=== PATIENT | female | born 1925 | race Caucasian/White ===

== ENCOUNTER 2017-03-15 09:04 | Observation (INO) | payer MEDICARE, BC, MEDICAID ==
[2017-03-15 10:17] LABS: HEMATOCRIT 40.5 % (36.0-48.0); MEAN CELL VOLUME 88.2 fL (80.0-100.0); MEAN CORPUS. HGB CONCENTRATION 34.7 g/dL (32.0-36.0); MEAN CORPUSCULAR HEMOGLOBIN 30.6 pg (29.0-35.0); MEAN PLATELET VOLUME 10.1 fL (7.4-10.4); PLATELET COUNT 292 X 10^3uL (130-440); RED BLOOD COUNT 4.59 X 10^6uL (4.20-6.10); RED CELL DISTRIBUTION WIDTH 12.9 % (11.5-14.5); WHITE BLOOD COUNT 16.4 X 10^3uL (3.9-10.7)
[2017-03-15] MEDS ORDERED: HOME MEDICATION LIST NEEDED 1 EA EACH MC ONE (10:17)
[2017-03-15] MEDS ORDERED: ONDANSETRON HCL 4 MG/2 ML VIAL ONE (10:22)
[2017-03-15] MEDS ORDERED: ACETAMINOPHEN 325 MG TABLET PO ONE (10:23)
[2017-03-15 10:24] LABS: BLOOD UREA NITROGEN 23 mg/dL (7-17); CALCIUM 10.6 mg/dL (8.4-10.2); CHLORIDE 101 mmol/L (98-107); GLUCOSE 131 mg/dL (70-100); POTASSIUM 4.2 mmol/L (3.5-5.1); SODIUM 143 mmol/L (137-145)
[2017-03-15 10:32] LABS: BAND% (Manual) 2 % (0.0-1.0); BASOPHIL % (Manual) 0 % (0.0-2.0); EOSINOPHIL % (Manual) 1 % (0.0-6.0); LYMPHOCYTE % (Manual) 9 % (20.0-40.0); MONOCYTE % (Manual) 4 % (2.0-10.0); NEUTROPHIL % (Manual) 84 % (54.0-75.0); PLATELET ESTIMATE ADEQUATE
[2017-03-15] MEDS ORDERED: cefTRIAXone SODIUM 1,000 MG/10 ML VIAL ONE (10:47)
[2017-03-15] MEDS ORDERED: NORMAL SALINE MINI-BAG+ 100 ML IV ONE (10:48)
[2017-03-15] MEDS ORDERED: NORMAL SALINE 0 ML IV ONE (10:48)
--- NOTE | 2017-03-15 11:15 | ER NURSING DOCUMENTATION ---
Nurse's Notes [facility] Name:Rocio Monsivais Age:89 yrs Sex:Female :[id number] Arrival Date:03/15/2017 Time:09:04 Bed4 Private MD:Meryl Shields Diagnosis:Pneumonia Bacterial Presentation: 03/15 09:06 Acuity: ALMITA 2 tg 09:20 Notified ED Physician of patient's arrival and CC Dr. Rolon notified. lpr 09:49 Presenting complaint: [facility] staff reports patient with cough and fever. Transition of lp care: [facility]. 09:49 Method Of Arrival: Wheelchair lp Triage Assessment: 10:00 General: Appears in no apparent distress, Behavior is appropriate for age. Pain: Denies lp pain. EENT: No deficits noted. Neuro: Level of Consciousness is awake, alert, confused, Oriented to person, place, Export Specialist are equal bilaterally. Cardiovascular: Capillary refill < 3 seconds Heart tones S1 S2 Murmur present Pulses are all present. Rhythm is Respiratory: Airway is patent Trachea midline Respiratory effort is even, unlabored, Respiratory pattern is regular, Reports cough that is productive. GI: No deficits noted. : No deficits noted. Derm: Skin is intact, is healthy with good turgor, is fragile, Skin is dry, Skin is pink, warm & dry. Historical: - Allergies: Codeine; Contrast; Darvon; PENICILLINS; Morphine; - Home Meds: 1. acetaminophen 325 mg oral tab 2 tabs every 4 hours as needed for Pain 2. atorvastatin 10 mg oral tab 1 tab once daily 3. Dulcolax (bisacodyl) 10 mg rectal supp 1 suppository once daily as needed for constipation 4. calcium and vitamin D 5. Celebrex 200 mg oral cap 1 cap once daily 6. diltiazem HCl 120 mg oral cpER 1 cap once daily 7. famotidine 20 mg oral tab 1 tab every 12 hours 8. ferrous sulfate 325 mg (65 mg iron) oral TbEC 9. gabapentin 300 mg oral cap 1 cap daily 10. Avapro 300 mg oral tab 1 tab once daily 11. lactulose 10 gram/15 mL oral soln 30 mL once daily 12. salonpas 13. nitroglycerin 0.4 mg sublingual subl 1 tab at the first sign of an attack; no more than 3 tabs are recommended within a 15 minute period. 14. nystatin 100,000 unit/gram topical oint 2 times per day 15. Zoloft 50 mg oral tab 1 tab once daily 16. warfarin 5 mg oral tab 1 tab once daily 17. aspirin 81 mg oral chew 1 tab once daily 18. metoprolol tartrate 25 mg oral tab 1 tab 2 times per day 19. OxyContin 10 mg oral Tb12 1 tab every 12 hours 20. oxycodone 5 mg oral cap 1 cap every 6 hours as needed for pain - PMHx: OSTEOARTHRITIS; OSTEOPOROSIS; polymyalgia rheumatica; GERD; DEPRESSION; PACEMAKER; Sick sinus syndrome; ATRIAL FIB; Hypertension; CAD; - PSHx: HYSTERECTOMY; Right knee replacement; Cardiac Stent; left hip arthroplasty; - Tetanus: < 10 years. - Ebola Screening: : Patient negative for fever greater than or equal to 101.5 degrees Fahrenheit, and additional compatible Ebola Virus Disease symptoms. Patient denies exposure to infectious person. Patient denies travel to an Ebola-affected area in the 21 days before illness onset. . - Immunization history: Pneumococcal vaccine is up to date, Flu Vaccine < 1 year. - Social history: Smoking status: . Screenin:03 Infectious Disease Risk None. Abuse screen: Denies threats or abuse. Denies injuries lp from another. Nutritional screening: No deficits noted. Assessment: 10:02 See Triage Assessment done by same RN. Respiratory: Airway is patent. Derm: No deficits lp noted. Vital Signs: 09:12 BP 147 / 69; Pulse 96; Resp 18; Temp 100.2(O); Pulse Ox 87% on R/A; Weight 80.74 kg; lp Height 5 ft. 6 in. (167.64 cm); Pain 0/10; 09:15 BP 143 / 65; Pulse 90; Resp 18; Pulse Ox 93% on 2 lpm NC; lp 10:00 BP 139 / 48; Pulse 79; Resp 18; Pulse Ox 93% on 2 lpm NC; lp 09:12 Body Mass Index 28.73 (80.74 kg, 167.64 cm) lp ED Course: 09:05 Patient arrived in ED. ds 09:05 Meryl Shields MD is Private Physician. ds 09:06 Juan Preston, RN is Primary Nurse. tg 09:06 Triage completed. tg 09:30 Port Xray Completed. ms 09:37 Polo Rolon MD is Attending Physician. sc 09:41 Inserted peripheral IV: 20 gauge in right forearm and blood collected. lp 10:[address] Rolon notified. lp 10:03 Valuables Remains with patient Patient has correct armband on for positive lp identification. Placed in gown. Bed in low position. Call light in reach. Side rails up X 1. Cardiac Monitoring On for Nurse Monitoring only. Pulse Ox - RN Monitoring Only NIBP On - RN Monitoring Only. 10:16 Meryl Shields MD is Admitting Physician. sc Administered Medications: 10:20 Drug: Zofran 4 mg; Route: IVP; Infused Over: 2 mins; Site: right forearm; lp 11:12 Follow up: Response: No adverse reaction; No change in condition lp 10:20 Drug: Tylenol 650 mg; Route: PO; lp 11:12 Follow up: Response: No adverse reaction; No change in condition lp 10:30 Drug: NS 0.9% 1000 ml; Route: IV; Rate: 30 ml/hr; Site: right forearm; lp 11:14 Follow up: Response: No adverse reaction; No change in condition; IV Status: Infusion lp continued upon admission; IV Intake: 30ml 10:56 Drug: Rocephin 1 grams; Route: IVPB; Site: right forearm; lp 11:12 Follow up: IV Status: Infusion continued upon admission; IV Intake: 100ml lp 11:12 Drug: Clindamycin 300 mg; Route: IVPB; Site: right forearm; lp 11:13 Follow up: Response: No adverse reaction; No change in condition lp 11:14 Follow up: Response: No adverse reaction; No change in condition; IV Status: Infusion lp continued upon admission Point of Care Testing: Urine Dip: 11:10 pH: 6.5; ; Specific [place]: 1.015; Ketones: Trace; Glucose: Negative; Protein: lp Positive (+); Leukocytes: Negative; Nitrite: Negative ; Blood: Non Hemolyzed Trace; Bilirubin: Small (+) ; Urobilinogen: Normal Intake: 11:12 IV: 100ml; Total: 100ml. lp 11:14 IV: 30ml; Total: 130ml. lp Outcome: 10:17 Decision to Admit by Provider. sc 11:14 Admitted to Med/surg accompanied by nurse. lp 11:14 Condition: stable 11:14 Report given to Med-consulting utility forester 11:14 Instructed on need to admit 11:15 Patient left the ED. lp Signatures: Juan Preston RN RN Marilee Cruz RN RN lp Srot, Deidra, Wagner Reg Polo Barroso MD MD wi [facility] Sierra Ingram RN RN lpr
--- NOTE | 2017-03-15 11:15 | ER PHYSICIAN DOCUMENTATION ---
Physician Documentation [facility] Name:Rocio Monsivais Age:89 yrs Sex:Female :1925 Arrival Date:03/15/2017 Time:09:04 Bed4 Private MD:Meryl Shields ED Polo Bailey Disposition: 03/15/17 10:17 Admit ordered for Meryl Shields. Preliminary diagnosis is Pneumonia Bacterial. - Bed requested for Medical/Surgical. - Condition is Serious. - Problem is an ongoing problem. - Symptoms are unchanged. 23 HR OBS Yes HPI: 03/15 09:56 This 89 yrs old Female presents to ER via Wheelchair with complaints of Fever.sc 09:56 The patient reports fever, that was measured at 100.8 degrees Fahrenheit. Onset: The sc symptom(s)/episode began/occurred last night. Associated signs and symptoms: Pertinent positives: altered mental status,\\ chills, cough, with yellow sputum. Severity of symptoms: At their worst the symptoms were moderate. The patient has been recently seen by a physician: the patient's primary care provider, with similar presenting complaints, was given a prescription for antibiotics. Historical: - Allergies: Codeine; Contrast; Darvon; PENICILLINS; Morphine; - Home Meds: 1. acetaminophen 325 mg oral tab 2 tabs every 4 hours as needed for Pain 2. atorvastatin 10 mg oral tab 1 tab once daily 3. Dulcolax (bisacodyl) 10 mg rectal supp 1 suppository once daily as needed for constipation 4. calcium and vitamin D 5. Celebrex 200 mg oral cap 1 cap once daily 6. diltiazem HCl 120 mg oral cpER 1 cap once daily 7. famotidine 20 mg oral tab 1 tab every 12 hours 8. ferrous sulfate 325 mg (65 mg iron) oral TbEC 9. gabapentin 300 mg oral cap 1 cap daily 10. Avapro 300 mg oral tab 1 tab once daily 11. lactulose 10 gram/15 mL oral soln 30 mL once daily 12. salonpas 13. nitroglycerin 0.4 mg sublingual subl 1 tab at the first sign of an attack; no more than 3 tabs are recommended within a 15 minute period. 14. nystatin 100,000 unit/gram topical oint 2 times per day 15. Zoloft 50 mg oral tab 1 tab once daily 16. warfarin 5 mg oral tab 1 tab once daily 17. aspirin 81 mg oral chew 1 tab once daily 18. metoprolol tartrate 25 mg oral tab 1 tab 2 times per day 19. OxyContin 10 mg oral Tb12 1 tab every 12 hours 20. oxycodone 5 mg oral cap 1 cap every 6 hours as needed for pain - PMHx: OSTEOARTHRITIS; OSTEOPOROSIS; polymyalgia rheumatica; GERD; DEPRESSION; PACEMAKER; Sick sinus syndrome; ATRIAL FIB; Hypertension; CAD; - PSHx: HYSTERECTOMY; Right knee replacement; Cardiac Stent; left hip arthroplasty; - Tetanus: < 10 years. - Ebola Screening: : Patient negative for fever greater than or equal to 101.5 degrees Fahrenheit, and additional compatible Ebola Virus Disease symptoms. Patient denies exposure to infectious person. Patient denies travel to an Ebola-affected area in the 21 days before illness onset. . - Immunization history: Pneumococcal vaccine is up to date, Flu Vaccine < 1 year. - Social history: Smoking status: . ROS: 09:58 Eyes: Negative for injury, pain, redness, and discharge. sc ENT: Negative for injury, pain, and discharge. Neck: Negative for injury, pain, and swelling. Cardiovascular: Negative for chest pain, palpitations, and edema. Abdomen/GI: Negative for abdominal pain, nausea, vomiting, diarrhea, and constipation. Back: Negative for injury and pain. MS/Extremity: Negative for injury and deformity. 09:58 Skin: Negative for injury, rash, and discoloration. sc 09:58 Constitutional: Positive for body aches, fever, malaise, poor PO intake. 09:58 Respiratory: Positive for cough, "sounds productive". 09:58 Neuro: Positive for altered mental status. Exam: 09:59 Constitutional: The patient appears alert, awake, agitated. sc 09:59 Respiratory: mild respiratory distress is noted, Respirations: shallow respirations, that is mild, tachypnea, Breath sounds: rhonchi, that are severe, are scattered. Head/Face: Normocephalic, atraumatic. Eyes: Pupils equal round and reactive to light, extra-ocular motions intact. Lids and lashes normal. Conjunctiva and sclera are non-icteric and not injected. Cornea within normal limits. Periorbital areas with no swelling, redness, or edema. ENT: Nares patent. No nasal discharge, no septal abnormalities noted. Tympanic membranes are normal and external auditory canals are clear. Oropharynx with no redness, swelling, or masses, exudates, or evidence of obstruction, uvula midline. Mucous membranes moist. Neck: Trachea midline, no thyromegaly or masses palpated, and no cervical lymphadenopathy. Supple, full range of motion without nuchal rigidity, or vertebral point tenderness. No meningismus. Chest/axilla: Normal chest wall appearance and motion. Nontender with no deformity. No lesions are appreciated. Cardiovascular: Regular rate and rhythm with a normal S1 and S2. No gallops, murmurs, or rubs. Normal PMI, no JVD. No pulse deficits. Abdomen/GI: Soft, non-tender, with normal bowel sounds. No distension or tympany. No guarding or rebound. No evidence of tenderness throughout. 10:05 Skin: Warm, dry with normal turgor. Normal color with no rashes, no lesions, and no sc evidence of cellulitis. 10:05 Neuro: Orientation: to person, situation, Mentation: confused, Memory: immediate memory is impaired, the patient can't repeat a series of words. Vital Signs: 09:12 BP 147 / 69; Pulse 96; Resp 18; Temp 100.2(O); Pulse Ox 87% on R/A; Weight 80.74 kg; lp Height 5 ft. 6 in. (167.64 cm); Pain 0/10; 09:15 BP 143 / 65; Pulse 90; Resp 18; Pulse Ox 93% on 2 lpm NC; lp 10:00 BP 139 / 48; Pulse 79; Resp 18; Pulse Ox 93% on 2 lpm NC; lp 09:12 Body Mass Index 28.73 (80.74 kg, 167.64 cm) lp MDM: 09:37 Patient medically screened. mn 10:05 Differential diagnosis: bacterial infection, URI, bronchitis, pneumonia. Data reviewed: mn vital signs, nurses notes, lab test result(s), radiologic studies, and as a result, I will admit patient. Counseling: I had a detailed discussion with the patient and/or guardian regarding: the historical points, exam findings, and any diagnostic results supporting the discharge/admit diagnosis, lab results, radiology results, the need for outpatient follow up. 10:15 Physician consultation: Meryl Shields MD was called at 10:16, was contacted at 10:16, mn regarding admission, and will see patient shortly. 03/15 10:18 Order name: CBC WITHOUT A DIFFERENTIAL; Complete Time: 10:35 EDSC 03/15 10:21 Interpretation: Abnormal: WHITE BLOOD COUNT 16.4. mn 03/15 10:25 Order name: BASIC METABOLIC PANEL; Complete Time: 10:35 EDSC 03/15 10:33 Order name: MANUAL DIFFERENTIAL; Complete Time: 10:35 EDSC 03/15 11:38 Order name: SPUTUM CULTURE AND GRAM STAIN EDMS 03/15 12:58 Order name: UA W/ MICRO -CULTURE IF IND EDMS 03/16 08:58 Order name: CBC AUTO DIF, MDIF/RMOR IF IND EDMS 03/16 09:03 Order name: BASIC METABOLIC PANEL EDSC 03/16 09:51 Order name: BLOOD CULTURE EDMS 03/16 09:51 Order name: BLOOD CULTURE EDSC 03/16 10:38 Order name: PROTIME/INR EDSC 03/17 10:34 Order name: NEGATIVE SENSITIVITY PANEL EDSC 03/15 11:52 Order name: CHEST; SINGLE VIEW [address]13 EDSC 03/15 09:20 Order name: I & O; Complete Time: 09:48 lpr 03/15 09:20 Order name: Oxygen; Complete Time: 09:41 lpr 03/15 09:20 Order name: Place Patient On Monitor; Complete Time: 09:41 lpr 03/15 09:20 Order name: Pulse Ox Continuous; Complete Time: 09:41 lpr Dispensed Medications: 10:20 Drug: Zofran 4 mg; Route: IVP; Infused Over: 2 mins; Site: right forearm; lp 11:12 Follow up: Response: No adverse reaction; No change in condition lp 10:20 Drug: Tylenol 650 mg; Route: PO; lp 11:12 Follow up: Response: No adverse reaction; No change in condition lp 10:30 Drug: NS 0.9% 1000 ml; Route: IV; Rate: 30 ml/hr; Site: right forearm; lp 11:14 Follow up: Response: No adverse reaction; No change in condition; IV Status: Infusion lp continued upon admission; IV Intake: 30ml 10:56 Drug: Rocephin 1 grams; Route: IVPB; Site: right forearm; lp 11:12 Follow up: IV Status: Infusion continued upon admission; IV Intake: 100ml lp 11:12 Drug: Clindamycin 300 mg; Route: IVPB; Site: right forearm; lp 11:13 Follow up: Response: No adverse reaction; No change in condition lp 11:14 Follow up: Response: No adverse reaction; No change in condition; IV Status: Infusion lp continued upon admission Point of Care Testing: Urine Dip: 11:10 pH: 6.5; ; Specific [place]: 1.015; Ketones: Trace; Glucose: Negative; Protein: lp Positive (+); Leukocytes: Negative; Nitrite: Negative ; Blood: Non Hemolyzed Trace; Bilirubin: Small (+) ; Urobilinogen: Normal Signatures: Marilee Márquez RN RN lp Polo Rolon MD MD mn Sierra Ingram RN RN lpr
[2017-03-15] MEDS ORDERED: D5W IV ONE (11:25)
[2017-03-15] MEDS ORDERED: PIGGYBACK IV ONE (11:25)
[2017-03-15] MEDS ORDERED: CLINDAMYCIN IV ONE (11:25)
--- NOTE | 2017-03-15 11:50 | RADIOLOGY REPORT ---
HISTORY: Fever. COMPARISON: 01/23/2016 FINDINGS: 1 view of the chest obtained. There is confluent opacification within the right lower lobe. The right heart border remains defined. The diaphragm is obscured. The remainder lungs are clear. Lungs are hy poventilated. The cardiomediastinal silhouette is stable. Transvenous pacemaker with dual lead wires the left subcl jose approach is unchanged. The aortic arch is elongated. Thoracic aorta is not enlarged. Trachea is midline. Pulmonary vascularity is stable. There is persistent prominence of the right hilum which is probably related to the right pulmonary artery. There are degenerative changes of the glenohumeral joints bilaterally. There is joint space during, s clerosis, subcortical lucency and marginal osteophytes. IMPRESSION: Interval development of right lower lobe infiltrate. Final Electronic Signature: This report was electronically signed by Eliud Herzog MD on 03/15/2017 11: [address] [facility] /
[2017-03-15 11:51] LABS: URINE MUCUS NONE SEEN (Up to 25%)
[2017-03-15] MEDS ORDERED: [UNRECOGNIZED DRUG - OTHER] IV SCH (12:00)
[2017-03-15] MEDS ORDERED: D5W IV SCH (12:00)
[2017-03-15] MEDS ORDERED: CLINDAMYCIN IV SCH (12:00)
[2017-03-15] MEDS: IPRATROPIUM/ALBUTEROL 0.5/3 MG 3 ML AMPUL.NEB IH SCH ×3 (12:45→23:30)
[2017-03-15 12:56] LABS: URINE COLOR YELLOW
[2017-03-15 12:57] LABS: URINE APPEARANCE CLEAR; URINE BACTERIA NONE SEEN (<10/hpf); URINE BILIRUBIN 0.5 mg/100ml (1+) (NEGATIVE); URINE BLOOD TRACE (NEGATIVE); URINE GLUCOSE NORMAL (NEGATIVE); URINE KETONE 5mg/dL (NEGATIVE); URINE LEUKOCYTE ESTERASE NEGATIVE (NEGATIVE); URINE NITRITE NEGATIVE (NEGATIVE); URINE PH 6.5 (5-7); URINE PROTEIN 30mg/dL (1+) (NEG - TRACE); URINE RBC 0-5/hpf (0-5/hpf); URINE SPECIFIC GRAVITY 1.015 (0.001-1.035); URINE UROBILINOGEN NORMAL (NEG-1mg/dL); URINE WBC 0-4/hpf (0-4/hpf)
[2017-03-15] MEDS ORDERED: NYSTATIN POWDER 1 APPLIC BTL TOPICAL PRN (17:39)
[2017-03-15] MEDS ORDERED: GUAIFENESIN 100 MG/5 ML PO PRN (17:39)
[2017-03-15] MEDS ORDERED: NEPAFENAC EACHEYE PRN (17:39)
[2017-03-15] MEDS ORDERED: NORMAL SALINE 250 ML IV ONE (18:33)
[2017-03-15] MEDS: ONDANSETRON ODT 4 MG TAB.RAPDIS PO SCH ×2 (19:24→23:30)
[2017-03-15] MEDS: NORMAL SALINE 1,000 ML IV SCH (19:28)
[2017-03-15] MEDS: CLINDAMYCIN IV SCH (20:41)
[2017-03-15] MEDS: oxyCODONE HCL CR 10 MG TAB.SR.12H PO SCH (20:41)
[2017-03-15] MEDS: D5W IV SCH (20:41)
[2017-03-15] MEDS: [UNRECOGNIZED DRUG - OTHER] IV SCH (20:41)
[2017-03-15] MEDS: GABAPENTIN 300 MG CAPSULE PO SCH (20:41)
[2017-03-15] MEDS: GUAIFENESIN 100 MG/5 ML PO SCH (20:41)
[2017-03-15] MEDS: DICLOFENAC 1% GEL 100 APP/100 GM TUBE TOPICAL SCH (20:42)
[2017-03-15] MEDS: ACETAMINOPHEN ER 650 MG TAB.SR.8HR PO SCH (20:42)
[2017-03-15] MEDS ORDERED: FUROSEMIDE 20 MG TABLET PO SCH (21:00)
[2017-03-15] MEDS ORDERED: NON-FORMULARY MEDICATION (Oxycodone Hcl [Oxycontin] 15 MG) PO SCH ×2 (21:00)
[2017-03-16] MEDS: NORMAL SALINE 1,000 ML IV SCH (00:52)
[2017-03-16] MEDS: GUAIFENESIN 100 MG/5 ML PO SCH ×4 (02:26→20:27)
[2017-03-16] MEDS: IPRATROPIUM/ALBUTEROL 0.5/3 MG 3 ML AMPUL.NEB IH SCH ×4 (04:18→22:18)
[2017-03-16] MEDS: D5W IV SCH ×3 (04:18→20:25)
[2017-03-16] MEDS: [UNRECOGNIZED DRUG - OTHER] IV SCH ×3 (04:18→20:25)
[2017-03-16] MEDS: CLINDAMYCIN IV SCH ×3 (04:18→20:25)
[2017-03-16] MEDS: ONDANSETRON ODT 4 MG TAB.RAPDIS PO SCH ×4 (05:55→23:13)
--- NOTE | 2017-03-16 08:23 | HISTORY & PHYSICAL ---
DATE OF ADMISSION: 03/15/17 ATTENDING PHYSICIAN: Meryl Shields MD HISTORY OF PRESENT ILLNESS: This 89-year-old lady has had intermittent cough for several weeks. Clinically, the patient was obviously struggling with a bronchitis of significance and confusion, so she was treated with Azithromycin. This course has been completed, but this morning, the patient was noted to be definitely febrile to 100.7, with poor oxygenation on her usual 2 liters of oxygen. She had a pulse oxygenation of 80%, and confused. She was taken to the Emergency Room for further evaluation and found to have a right lower lobe pneumonia and leukocytosis. She is now admitted for possible aspiration pneumonia, with drug allergies limiting what we are able to offer. She has already had a dose of Rocephin and Clindamycin. A swallow evaluation will be attempted tomorrow or the subsequent day. PAST MEDICAL HISTORY 1. Significant chronic pain syndrome requiring daily narcotics. 2. Lumbosacral spondylosis. 3. Osteoporosis. 4. Rotator cuff syndrome bilaterally. 5. Polymyalgia rheumatica. 6. Gastroesophageal reflux disease. 7. Occasional migraines. 8. Depression. 9. B12 deficiency. 10. Pacemaker for sick sinus syndrome. 11. Paroxysmal atrial fibrillation on Coumadin. 12. Hypertension. 13. Coronary artery disease. PAST SURGICAL HISTORY 1. Remote hysterectomy. 2. Remote right knee replacement. 3. Cardiac stent placement. 4. Lumbar facet rhizotomy. 5. Left hip arthroplasty. MEDICATIONS Scheduled Tylenol. Aspirin 81 mg p.o. daily. Atorvastatin 10 mg p.o. daily. Celebrex 200 mg p.o. daily. Irbesartan 300 mg p.o. daily. Warfarin variable dosing according to INR. Metoprolol 25 mg p.o. b.i.d. Vitamin D 400 International Units p.o. daily. Pepcid 20 mg p.o. daily. Gabapentin 300 mg p.o. at h.s. OxyContin 15 mg at h.s. Oxycodone 5 mg at h.s., 2.5 mg p.o. q.a.m. ALLERGIES: Many including Codeine, Fentanyl, Iodine, morphine, Quinolones, Darvon, IV contrast, penicillins. SOCIAL HISTORY: She is a former smoke who quit smoking in 1967. She does not drink alcohol. She normally is at [facility] with support of local family. LABORATORY DATA: CBC in the Emergency Room revealed a white count of 16.5 with a left shift, 2% bands. An INR last checked on 03/11/17 was 2.9. Chemistries are remarkable for a BUN of 23, creatinine of 1. Electrolytes normal. Chest x-ray reveals right lower lobe pneumonia. PHYSICAL EXAMINATION VITAL SIGNS: She is afebrile. Blood pressure on arrival to [facility] was 114/60 with a pulse of 72. Respiratory rate 20. She is 92% on 4 liters of oxygen; however later in the afternoon blood pressure was 99/49 with increased respiratory rate of 30. O2 requirement similar. GENERAL: She is very fatigued and uncomfortable and not very articulate at the time of examination. Her lips are very dry. There is no adenopathy. CARDIAC: Regular rate and rhythm at this time. CHEST: Rhonchi in the lower lobes. No wheezing. ABDOMEN: Soft, nontender. EXTREMITIES: Without significant edema. NEUROLOGIC: She is using all extremities but is diffusely weak and not able to cooperative with much exam. ASSESSMENT 1. Right lower lobe pneumonia. Possible setting of chronic aspiration. The patient has struggled to remain alert and active during the day related to her pain medication over the years. We have cut this down at intervals over the last year, but it is possible that she is having some aspiration issues and would benefit from further reduction. We will have speech therapy see her while she is in the hospital, and I have written for mechanical soft foods and thickened liquids for now. She has already begun a course of Ceftriaxone and Clindamycin until a specific organism can be discerned, if possible. 2. Relative hypotension. Blood pressure below 100 systolic is not comfortable in a lady of her age. Her blood pressure medication will be held if needed, although with a fluid bolus, if her blood pressure is more acceptable, we will restart beta-alycia to avoid rapid ventricular rate. 3. Chronic pain syndrome. This has been very difficult to treat relative to the above issues, her age and obvious diffuse discomfort with some regularity. Chronic medications will be continued if tolerated by vital signs. 4. DNR. The patient is a clearly stated do not resuscitate, I have mentioned the issues with aspiration to the daughter who is her Power of Building Services Technician. Probably she will not be transferred, although the daughter does have some interest in vasopressors if they might help in the acute setting. 5. Complex cardiac history. Hopefully she can tolerate her beta-alycia still for rate control. INR can be reassessed in the morning. She has tended to have an elevated INR in recent past related to being on antibiotics. TAZ
[2017-03-16 08:51] LABS: BASOPHIL# 0.1 X 10^3uL (0.0-0.1); BASOPHILS 0.4 % (0.0-2.0); EOSINOPHILS 0.6 % (0.0-6.0); EOSINOPHILS# 0.1 X 10^3uL (0.0-0.4); HEMOGLOBIN 12.6 g/dL (12.0-16.0); LYMPHOCYTES 8.1 % (20.0-40.0); LYMPHOCYTES# 1.1 X 10^3uL (0.8-3.8); MEAN CELL VOLUME 89.6 fL (80.0-100.0); MEAN CORPUS. HGB CONCENTRATION 33.9 g/dL (32.0-36.0); MEAN CORPUSCULAR HEMOGLOBIN 30.4 pg (29.0-35.0); MEAN PLATELET VOLUME 10.2 fL (7.4-10.4); MONOCYTES 7.9 % (2.0-10.0); MONOCYTES# 1.1 X 10^3uL (0.2-1.0); NEUTROPHILS# 11.7 X 10^3uL (2.6-6.7); PLATELET COUNT 240 X 10^3uL (130-440); RED BLOOD COUNT 4.13 X 10^6uL (4.20-6.10); RED CELL DISTRIBUTION WIDTH 13.2 % (11.5-14.5); WHITE BLOOD COUNT 14.1 X 10^3uL (3.9-10.7)
[2017-03-16 08:58] LABS: BLOOD UREA NITROGEN 27 mg/dL (7-17); CALCIUM 9.5 mg/dL (8.4-10.2); CHLORIDE 101 mmol/L (98-107); GLUCOSE 89 mg/dL (70-100); POTASSIUM 4.3 mmol/L (3.5-5.1); SODIUM 143 mmol/L (137-145)
[2017-03-16] MEDS ORDERED: WHEY PROTEIN ISOLATE PO SCH (09:00)
[2017-03-16] MEDS ORDERED: POTASSIUM CHLORIDE ER 20 MEQ TABLET PO SCH (09:00)
[2017-03-16] MEDS: CHOLECALCIFEROL 400 UNIT TABLET PO SCH (09:06)
[2017-03-16] MEDS: ACETAMINOPHEN ER 650 MG TAB.SR.8HR PO SCH ×3 (09:06→20:27)
[2017-03-16] MEDS: DOCUSATE SODIUM 100 MG CAPSULE PO SCH (09:06)
[2017-03-16] MEDS: cefTRIAXone SODIUM 1,000 MG in NORMAL SALINE MINI-BAG+ 100 ML IV SCH (09:07)
[2017-03-16] MEDS: SALIVA STIMULANT MUCOUS MEM SCH (09:07)
[2017-03-16] MEDS: OCUVITE VIT C/E/ZINC/CU 1 CAP CAPSULE PO SCH (09:10)
[2017-03-16] MEDS: POTASSIUM CHLORIDE ER 20 MEQ TABLET PO SCH (09:10)
[2017-03-16] MEDS: PAROXETINE HCL 20 MG TABLET PO SCH (09:10)
[2017-03-16] MEDS: FAMOTIDINE 20 MG TABLET PO SCH (09:11)
--- NOTE | 2017-03-16 09:13 | PROGRESS NOTE: IM APSO ---
Assessment and Plan - Date of Encounter Date of Encounter: 03/16/17 (1) Aspiration pneumonia Status: Acute Assessment and plan: Doing well clinically, and leukocytosis looks like it is following, on Rocephin and Clinda. O2 req't is reasonable. Maybe return to [facility] on similar abx within 24 hrs. Swallow eval when possible, pt has enough dementia that chin tucking will be hard to remember. Risk of aspiration, mentioned to dtr. We need to bear in mind for future planning, swallow eval before rushing to conclusions, see below. Current Visit: Yes (2) Elevated INR Status: Acute Assessment and plan: r/t abx Current Visit: Yes (3) Confusion Status: Chronic Assessment and plan: when ill or in pain; will try to minimize narcotics; I reduced again last night. Current Visit: Yes (4) Chronic pain Status: Chronic Assessment and plan: As above Current Visit: Yes (5) Sedated due to multiple medications Status: Chronic Assessment and plan: As above, may be contributing to aspiration issues. Current Visit: Yes - Time Spent With Patient Total time spent with greater than 50% in coordination of care (as documented) at patient's floor/unit and/or counseling patient: less than 15 minutes IM: PN Subjective General: fatigue, pain (chronic) Cardiovascular: no chest pain Respiratory: cough, sputum, no SOB Musculoskeletal: no swelling IM: PN Objective Exam - I&O/Vital Signs I&O: Intake & Output 03/15/17 03/16/17 03/16/17 21:59 05:59 13:59 Weight 79.5 kg Other: # Voids 0 Vital Signs: Last Vital Signs Temp 36.7 C 03/16/17 06:29 Pulse 71 03/16/17 03:00 Resp 18 03/16/17 06:29 BP 120/44 03/16/17 06:29 Pulse Ox 91 03/16/17 03:00 Oxygen Flow Rate 3.5 Oxygen Delivery Method Nasal Cannula - Constitutional General appearance: Present: cooperative. Absent: mild distress - ENT ENT exam: Present: mucous membranes moist - Respiratory Respiratory exam: Present: decreased breath sounds (R base), clear. Absent: respiratory distress - Cardiovascular Cardiovascular exam: Present: RRR - Extremities Exam Extremities exam: Absent: edema - Lab Labs: Laboratory Last Values WBC 14.1 X 10^3uL (3.9-10.7) H 03/16/17 08:20 RBC 4.13 X 10^6uL (4.20-6.10) L 03/16/17 08:20 Hgb 12.6 g/dL (12.0-16.0) 03/16/17 08:20 Hct 37.0 % (36.0-48.0) 03/16/17 08:20 MCV 89.6 fL (80.0-100.0) 03/16/17 08:20 MCH 30.4 pg (29.0-35.0) 03/16/17 08:20 MCHC 33.9 g/dL (32.0-36.0) 03/16/17 08:20 RDW 13.2 % (11.5-14.5) 03/16/17 08:20 Plt Count 240 X 10^3uL (130-440) 03/16/17 08:20 MPV 10.2 fL (7.4-10.4) 03/16/17 08:20 Total Counted 100 03/15/17 09:10 Neutrophils % 83.0 % (54.0-75.0) H 03/16/17 08:20 Neutrophils % (Manual) 84 % (54.0-75.0) H 03/15/17 09:10 Band Neuts % (Manual) 2 % (0.0-1.0) H 03/15/17 09:10 Lymphocytes % 8.1 % (20.0-40.0) L 03/16/17 08:20 Lymphocytes % (Manual) 9 % (20.0-40.0) L 03/15/17 09:10 Atypical Lymphs % (Man) 0 % 03/15/17 09:10 Monocytes % (Manual) 4 % (2.0-10.0) 03/15/17 09:10 Eosinophils % 0.6 % (0.0-6.0) 03/16/17 08:20 Eosinophils % (Manual) 1 % (0.0-6.0) 03/15/17 09:10 Basophils % 0.4 % (0.0-2.0) 03/16/17 08:20 Basophils % (Manual) 0 % (0.0-2.0) 03/15/17 09:10 Neutrophils # 11.7 X 10^3uL (2.6-6.7) H 03/16/17 08:20 Lymphocytes # 1.1 X 10^3uL (0.8-3.8) 03/16/17 08:20 Monocytes 7.9 % (2.0-10.0) 03/16/17 08:20 Monocytes # 1.1 X 10^3uL (0.2-1.0) H 03/16/17 08:20 Eosinophils # 0.1 X 10^3uL (0.0-0.4) 03/16/17 08:20 Basophils # 0.1 X 10^3uL (0.0-0.1) 03/16/17 08:20 Platelet Estimate Adequate 03/15/17 09:10 Sodium 143 mmol/L (137-145) 03/16/17 08:20 Potassium 4.3 mmol/L (3.5-5.1) 03/16/17 08:20 Chloride 101 mmol/L (98-107) 03/16/17 08:20 Carbon Dioxide 29 mmol/L (22-30) 03/16/17 08:20 BUN 27 mg/dL (7-17) H 03/16/17 08:20 Creatinine 0.9 mg/dL (0.5-1.0) 03/16/17 08:20 GFR Calculation Not Reportable 03/16/17 08:20 Glucose 89 mg/dL (70-100) 03/16/17 08:20 Calcium 9.5 mg/dL (8.4-10.2) 03/16/17 08:20 Urine Color Yellow 03/15/17 11:30 Urine Appearance Clear 03/15/17 11:30 Urine pH 6.5 (5-7) 03/15/17 11:30 Ur Specific [place] 1.015 (0.001-1.035) 03/15/17 11:30 Urine Protein 30mg/dl (1+) (NEG - TRACE) A 03/15/17 11:30 Urine Ketones 5mg/dl (NEGATIVE) A 03/15/17 11:30 Urine Blood Trace (NEGATIVE) A 03/15/17 11:30 Urine Nitrate Negative (NEGATIVE) 03/15/17 11:30 Urine Bilirubin 0.5 mg/100ml (1+) (NEGATIVE) A 03/15/17 11:30 Urine Urobilinogen Normal (NEG-1mg/dL) 03/15/17 11:30 Ur Leukocyte Esterase Negative (NEGATIVE) 03/15/17 11:30 Urine RBC 0-5/hpf (0-5/hpf) 03/15/17 11:30 Urine WBC 0-4/hpf (0-4/hpf) 03/15/17 11:30 Ur Squamous Epith Cells 5-10/hpf (<= 15/hpf) 03/15/17 11:30 Urine Bacteria None seen (<10/hpf) 03/15/17 11:30 Hyaline Casts 5-10/lpf (0-5/lpf) A 03/15/17 11:30 Fine Granular Casts 0-2/lpf (0-5/lpf) 03/15/17 11:30 Urine Mucus None seen (Up to 25%) 03/15/17 11:30 Urine Glucose Normal (NEGATIVE) 03/15/17 11:30 Quality Questions - VTE Prophylaxis Assessment VTE Present on Admission?: No Patient at risk for venous thromboembolism?: Yes VTE Risk Level: Moderate Risk Pharmaceutical VTE prophylaxis contraindication reason: contraindicated (hyper anticoagulated at present) Mechanical VTE prophylaxis contraindication reason: N/A- VTE prophylaxsis ordered
[2017-03-16] MEDS: DICLOFENAC 1% GEL 100 APP/100 GM TUBE TOPICAL SCH ×2 (09:28→20:28)
[2017-03-16] MEDS: CELECOXIB 100 MG CAPSULE PO SCH (09:46)
[2017-03-16 10:37] LABS: INR 7.8
[2017-03-16] MEDS ORDERED: O2 HUMIDIFIER 650 ML BOTTLE INHALATION ONE (10:51)
[2017-03-16] MEDS: GABAPENTIN 300 MG CAPSULE PO SCH (20:25)
[2017-03-16] MEDS: oxyCODONE HCL CR 10 MG TAB.SR.12H PO SCH (20:26)
[2017-03-17] MEDS: D5W IV SCH ×2 (03:59→12:36)
[2017-03-17] MEDS: [UNRECOGNIZED DRUG - OTHER] IV SCH ×2 (03:59→12:36)
[2017-03-17] MEDS: CLINDAMYCIN IV SCH ×2 (03:59→12:36)
[2017-03-17] MEDS: GUAIFENESIN 100 MG/5 ML PO SCH ×2 (04:04→11:02)
[2017-03-17] MEDS: IPRATROPIUM/ALBUTEROL 0.5/3 MG 3 ML AMPUL.NEB IH SCH ×2 (05:58→11:23)
[2017-03-17] MEDS: ONDANSETRON ODT 4 MG TAB.RAPDIS PO SCH ×2 (06:00→12:37)
--- NOTE | 2017-03-17 08:05 | DC SUMMARY: IM Note ---
Discharge Summary: IM/Peds Provider: Date of Admission: 03/15/17 Admitting Provider: DIOGO LOWE MD Attending Provider: DIOGO LOWE MD Discharging Provider: DIOGO LOWE MD Primary Care Provider: Discharge Date: 03/17/17 - Diagnosis (1) Aspiration pneumonia Status: Suspected (2) Elevated INR Status: Acute (3) Confusion Status: Chronic (4) Chronic pain Status: Chronic (5) Sedated due to multiple medications Status: Chronic Hospital Course: Pt has struggled with confusion and cough for weeks, seemed improved with Zpak briefly then presented with fever and respy compromise 48 hrs ago. Has RLL pneumonia, concern for aspiration pneumonia. Speech therapy has eval'd and agrees with some simple modifications to diet. I have trimmed back on narcotics over the last week. Hopefully all this will result in reasonable quality of life and prevention of future aspiration pneumonia in future, but discussed with POA/dtr that the future is not clear yet. - Time Spent with Patient Total time spent providing and/or coordinating discharge services: Discharge - Patient/Caregiver Discharge Instructions Activity Level: Usual, as tolerated Diet: Cardiac, mechanical soft, nectar thickened liquids, remind pt to tuck chin when she swallows to avoid aspiration. Will need frequent reminders. Overall discharge status: patient is progressing back to baseline Disposition: ER [facility] Discharge Summary Data - Medication History Medication History: Home Medications Acetaminophen ER [Tylenol ER] 650 mg PO TID 03/15/17 Bisacodyl [Dulcolax] 10 mg RECTAL DAILY 03/15/17 Calcium Citrate/Vitamin D3 [Calcium Cit-Vit D 315-200 Tab] 2 tab PO BID Carboxymethylcell/Hypromellose [Genteal Gel Drops] 1 drop EACHEYE HS 03/15/17 Celecoxib [CeleBREX] 200 mg PO DAILY 03/15/17 Cholecalciferol [Vitamin D*] 400 unit PO DAILY 03/15/17 Diclofenac 1% Gel [Voltaren Top Gel 1%*] 4 gm TOPICAL BID 03/15/17 Docusate Sodium [Colace*] 300 mg PO DAILY 03/15/17 Famotidine [Pepcid] 20 mg PO DAILY 03/15/17 Furosemide [Lasix*] 40 mg PO BID 03/15/17 Gabapentin [Neurontin*] 300 mg PO HS 03/15/17 Guaifenesin Soln [Guaifenesin Syrup*] 10 ml PO Q4H PRN 03/15/17 Hydrocortisone Acetate [Anusol-Hc] 1 supp RECTAL BID PRN 03/15/17 Ipratropium/Albuterol 0.5/3 mg [Duoneb 2.5-0.5 mg/3 ml Soln] 3 ml INHALATION PRN 03/15/17 Irbesartan [Avapro] 300 mg PO DAILY 03/15/17 Lactulose [Chronulac*] 30 ml PO TID 03/15/17 Lidocaine 5% [Lidoderm 5%*] 1 patch TOPICAL DAILY PRN 03/15/17 Lysine 500 mg PO DAILY PRN 03/15/17 Magnesium Hydroxide [Milk of Magnesia*] 30 ml PO DAILY PRN 03/15/17 Menthol [Biofreeze] 118 ml TP TID 03/15/17 Methyl Salicylate/Menth/Camph [Salonpas Patch] 1 - 2 patch TOPICAL TID PRN 03/15 Nepafenac [Nevanac] 1 drop EACHEYE QID PRN 03/15/17 Nitroglycerin [Nitrostat*] 0.4 mg SUBLINGUAL DIRECTED PRN 03/15/17 Non-Formulary Medication 1 - 2 drop EACHEYE PRN 03/15/17 Non-Formulary Medication 60 mg PO DAILY 03/15/17 Nystatin Powder [Mycostatin Powder*] 1 maykel TOPICAL BID PRN 03/15/17 Ocuvite Vit C/E/Zinc/Cu [Ocuvite Lutein Capsule*] 1 cap PO DAILY 03/15/17 Ondansetron HCl [Zofran] 4 mg PO Q6H 03/15/17 Oxycodone HCl [Oxycontin] 15 mg PO BEDTIME (DAILY) 03/15/17 Paroxetine HCl [Paroxetine HCl*] 10 mg PO DAILY 03/15/17 Pectin [Throat Drops] 1 tab PO Q2H PRN 03/15/17 Polyvinyl Alcohol 1.4% Ophth [Teargen*] 1 drop EACHEYE QID 03/15/17 Potassium Chloride ER [K-Dur*] 1 tab PO DAILY 03/15/17 Saline Nasal Gel [[place] Saline Nasal Gel] 1 maykel TOPICAL TID PRN 03/15/17 Saliva Stimulant [Biotene Moisturizing Mouth [place]*] 1 spray PO DAILY 03/15/17 Sennosides [Senokot] 8.6 mg PO BID PRN 03/15/17 Sodium Chloride Nasal [place] [[place] Nasal [place]] 1 spray NASAL DAILY PRN Warfarin Sodium [Coumadin*] 1 mg PO DAILY 03/15/17 Whey Protein Isolate [Beneprotein] 1 packet PO DAILY 03/15/17 aspirin EC [Aspirin EC*] 81 mg PO DAILY 03/15/17 metoprolol TARTRATE [Metoprolol Tartrate*] 25 mg PO BID 03/15/17 oxyCODONE HCL IR [Oxy Ir*] 2.5 mg PO EVERY MORNING 03/15/17 oxyCODONE HCL IR [Oxy Ir*] 5 mg PO HS 03/15/17 Inpatient Medications 03/15/17 17:39 Nepafenac [Nevanac] 1 drop EACHEYE QID PRN Nystatin Powder [Mycostatin Powder] 1 applic TOPICAL BID PRN 03/15/17 17:45 Ondansetron Odt [Zofran Odt] 4 mg PO Q6H 03/15/17 18:00 Normal Saline [Sodium Chloride 0.9% 1000 ml] 1,000 ml IV CONT oxyCODONE HCL IR [Oxy Ir] 2.5 mg PO EVERY MORNING 03/15/17 20:00 Clindamycin/D5w 600 mg/50 ml [Cleocin 600 mg] 600 mg Clindamycin/D5w 600 mg/ 50 ml [Cleocin 600 mg] 50 mg IV Q8H Guaifenesin Soln [Robitussin Soln] 100 mg PO Q6H 03/15/17 21:00 Acetaminophen ER [Tylenol ER] 650 mg PO TID Diclofenac 1% Gel [Voltaren Gel 1%] 1 maykel TOPICAL BID Gabapentin [Neurontin] 300 mg PO HS metoprolol TARTRATE [Lopressor] 25 mg PO BID oxyCODONE HCL CR [OxyCONTIN CR] 10 mg PO BEDTIME (DAILY) oxyCODONE HCL IR [Oxy Ir] 5 mg PO HS 03/16/17 09:00 Celecoxib [CeleBREX] 200 mg PO DAILY Cholecalciferol [Vitamin D3] 400 unit PO DAILY Docusate Sodium [Colace] 300 mg PO DAILY Famotidine [Pepcid] 20 mg PO DAILY Ocuvite Vit C/E/Zinc/Cu [Ocuvite Lutein] 1 cap PO DAILY Paroxetine HCl [Paxil] 10 mg PO DAILY Potassium Chloride ER [K-Dur] 20 meq PO DAILY Saliva Stimulant [Biotene Moisturizing Mouth [place]] 1 spray MUCOUS MEM DAILY aspirin EC [Ecotrin 81 mg] 81 mg PO DAILY Procedures and tests throughout hospitalization: Completed Lab Orders 03/15/17 11:30 UA W/ MICRO -CULTURE IF IND [URINE] Stat 03/16/17 08:20 BMP [BASIC METABOLIC PANEL] [CHEM] AMDRAW CBC AUTO DIF, MDIF/RMOR IF IND [HEM] AMDRAW PROTIME/INR [HEM] Routine Pending Orders 03/15/17 17:39 Nepafenac [Nevanac] 1 drop EACHEYE QID PRN Nystatin Powder [Mycostatin Powder] 1 applic TOPICAL BID PRN 03/15/17 17:44 speech [Speech Evaluation & Treatment] [ST] Routine 03/15/17 17:45 Ondansetron Odt [Zofran Odt] 4 mg PO Q6H 03/15/17 18:00 Normal Saline [Sodium Chloride 0.9% 1000 ml] 1,000 ml IV CONT oxyCODONE HCL IR [Oxy Ir] 2.5 mg PO EVERY MORNING 03/15/17 20:00 Clindamycin/D5w 600 mg/50 ml [Cleocin 600 mg] 600 mg Clindamycin/D5w 600 mg/ 50 ml [Cleocin 600 mg] 50 mg IV Q8H Guaifenesin Soln [Robitussin Soln] 100 mg PO Q6H 03/15/17 21:00 Acetaminophen ER [Tylenol ER] 650 mg PO TID Diclofenac 1% Gel [Voltaren Gel 1%] 1 maykel TOPICAL BID Gabapentin [Neurontin] 300 mg PO HS metoprolol TARTRATE [Lopressor] 25 mg PO BID oxyCODONE HCL CR [OxyCONTIN CR] 10 mg PO BEDTIME (DAILY) oxyCODONE HCL IR [Oxy Ir] 5 mg PO HS 03/15/17 Breakfast Mechanical Soft [place] Thick Liquids 03/16/17 09:00 Celecoxib [CeleBREX] 200 mg PO DAILY Cholecalciferol [Vitamin D3] 400 unit PO DAILY Docusate Sodium [Colace] 300 mg PO DAILY Famotidine [Pepcid] 20 mg PO DAILY Ocuvite Vit C/E/Zinc/Cu [Ocuvite Lutein] 1 cap PO DAILY Paroxetine HCl [Paxil] 10 mg PO DAILY Potassium Chloride ER [K-Dur] 20 meq PO DAILY Saliva Stimulant [Biotene Moisturizing Mouth [place]] 1 spray MUCOUS MEM DAILY aspirin EC [Ecotrin 81 mg] 81 mg PO DAILY 03/16/17 09:14 DESMOND Summers . 03/16/17 14:21 Speech Therapy Plan of Care [ST] Routine Labs on day of discharge: Labs from last 24 hours 03/16/17 08:20 WBC 14.1 H RBC 4.13 L Hgb 12.6 Hct 37.0 MCV 89.6 MCH 30.4 MCHC 33.9 RDW 13.2 Plt Count 240 MPV 10.2 Neutrophils % 83.0 H Lymphocytes % 8.1 L Eosinophils % 0.6 Basophils % 0.4 Neutrophils # 11.7 H Lymphocytes # 1.1 Monocytes 7.9 Monocytes # 1.1 H Eosinophils # 0.1 Basophils # 0.1 PT 81.3 H INR 7.8 H* D Sodium 143 Potassium 4.3 Chloride 101 Carbon Dioxide 29 BUN 27 H Creatinine 0.9 GFR Calculation Not Reportable Glucose 89 Calcium 9.5 IM: Discharge Physical Exam - I&O/Vital Signs I&O: Intake & Output 03/16/17 03/17/17 03/17/17 21:59 05:59 13:59 Intake Total 750 400 Balance 750 400 Weight 79.5 kg Intake: IV 150 Left Forearm 150 Oral 600 400 Other: Voiding Method Incontinent # Voids 3 1 # Bowel Movements 0 Vital Signs: Last Vital Signs Temp 36.8 C 03/17/17 06:47 Pulse 74 03/17/17 06:47 Resp 19 03/17/17 06:47 BP 138/44 03/17/17 06:47 Pulse Ox 99 03/17/17 06:47 Oxygen Flow Rate 3 Oxygen Delivery Method Nasal Cannula - Constitutional General appearance: Present: cooperative. Absent: mild distress - ENT ENT exam: Present: mucous membranes moist - Respiratory Respiratory exam: Present: decreased breath sounds (R base), clear. Absent: respiratory distress - Cardiovascular Cardiovascular exam: Present: RRR - GI/Abdominal GI/Abdominal exam: Present: distended, soft - Extremities Exam Extremities exam: Absent: edema - Neurological Exam Neurological exam: Present: alert - Psychiatric Psychiatric exam: Present: anxious (pain is significant after being in bed all night) - Skin Skin exam: Present: intact - Allied Health Notes Allied health notes reviewed: nursing
[2017-03-17] MEDS: OCUVITE VIT C/E/ZINC/CU 1 CAP CAPSULE PO SCH (10:04)
[2017-03-17] MEDS: DOCUSATE SODIUM 100 MG CAPSULE PO SCH (10:05)
[2017-03-17] MEDS: POTASSIUM CHLORIDE ER 20 MEQ TABLET PO SCH (10:07)
[2017-03-17] MEDS: ACETAMINOPHEN ER 650 MG TAB.SR.8HR PO SCH (10:08)
[2017-03-17] MEDS: PAROXETINE HCL 20 MG TABLET PO SCH (10:09)
[2017-03-17] MEDS: CHOLECALCIFEROL 400 UNIT TABLET PO SCH (10:10)
[2017-03-17] MEDS: CELECOXIB 100 MG CAPSULE PO SCH (10:11)
[2017-03-17] MEDS: FAMOTIDINE 20 MG TABLET PO SCH (10:12)
[2017-03-17] MEDS: SALIVA STIMULANT MUCOUS MEM SCH (11:01)
[2017-03-17] MEDS: cefTRIAXone SODIUM 1,000 MG in NORMAL SALINE MINI-BAG+ 100 ML IV SCH (11:01)
[2017-03-17] MEDS: DICLOFENAC 1% GEL 100 APP/100 GM TUBE TOPICAL SCH (11:01)
[2017-03-17 11:26] VITALS: O2SAT 97
[2017-03-17 12:20] VITALS: BP 106/39; PULSE 77; RESP 16; TEMP 98.7
[2017-03-17] MEDS ORDERED: SODIUM CHLORIDE IRRIG IRRIGATION ONE (20:38)
== END 2017-03-17 12:00 ==
LOC: ER 09:04 → IN 11:08
PROVIDERS: ADMIT Family Medicine; ATTEND Family Medicine
DX: J69.8 Pneumonitis due to inhalation of other solids and liquids (principal); I25.10 Atherosclerotic heart disease of native coronary artery without angina pectoris; R41.0 Disorientation, unspecified; D64.9 Anemia, unspecified; I10 Essential (primary) hypertension; I48.2 Chronic atrial fibrillation; Z95.0 Presence of cardiac pacemaker; K21.9 Gastro-esophageal reflux disease without esophagitis; G89.29 Other chronic pain; F32.89 Other specified depressive episodes; M81.0 Age-related osteoporosis without current pathological fracture; G60.9 Hereditary and idiopathic neuropathy, unspecified; Z79.02 Long term (current) use of antithrombotics/antiplatelets; Z79.82 Long term (current) use of aspirin; E78.5 Hyperlipidemia, unspecified; Z79.899 Other long term (current) drug therapy
CPT/HCPCS: 36415; 71010; 80048; 81001; 85007; 85025; 85027; 85610; 87040; 87070; 87077; 87186; 87205; 89220; 94640; 96365; 96366; 96367; 96375; 99285; E0555; G0378; G8996; G8997; G8998; J0696; J2405; J7030; J7620